=== PATIENT | female | born 1980 | race Caucasian/White ===

== ENCOUNTER 2016-08-11 20:12 | Emergency (ER) | payer OTHER ==
[2016-08-11 20:15] VITALS: RESP 16
--- NOTE | 2016-08-11 21:27 | EDPHY ---
H & P Time Seen by Provider: 08/11/16 20:38 HPI/ROS: CHIEF COMPLAINT: Right wrist injury HISTORY OF PRESENT ILLNESS: 36-year-old female presents to the emergency department with injury to her right wrist. The patient was skateboarding and fell and injured her right wrist. She did not hit her head or lose consciousness. She denies any other injury or trauma. She complains of isolated pain to the right wrist. She is right-hand dominant. She has pain especially with range of motion. The incident happened just prior to arrival. ROS: Denies numbness or tingling in her fingers, pain in her right elbow or shoulder. Past Medical/Surgical History: Negative Social History: single Smoking Status: Never smoked Physical Exam: On examination the patient has obvious swelling noted over the right wrist. She has pain with palpation especially over the distal radius. She has normal sensation to light touch with normal 2 point discrimination. Strong radial pulse at the right wrist. Unable to fully supinate secondary to pain. Limited flexion and extension secondary to pain. Her right hand is nontender. Right elbow is nontender. Constitutional: Initial Vital Signs Temperature (C) 36.4 C 08/11/16 20:13 Heart Rate 88 08/11/16 20:13 Respiratory Rate 16 08/11/16 20:13 Blood Pressure 140/98 H 08/11/16 20:13 O2 Sat (%) 93 08/11/16 20:13 O2 Delivery Mode Room Air Allergies/Adverse Reactions: No Known Allergies Allergy (Unverified 08/11/16 20:15) Home Medications: Medication Instructions Recorded NK [No Known Home Meds] 08/11/16 MDM/Departure - MDM Imaging Results: Imaging Impressions Wrist X-Ray 08/11/16 20:17 Impression: Acute impacted distal radial metadiaphyseal fracture, with an ulnar styloid avulsion fracture. Imaging: I viewed and interpreted images myself Procedures: Patient was placed in Ortho Glass sugar-tong splint and examined post application in good placement with normal [employer]. ED Course/Re-evaluation: 36-year-old female presents to the emergency department with right wrist injury. X-rays reveal distal radius intra-articular fracture as well as ulnar styloid fracture. She was placed in sugar-tong Ortho Glass splint and given orthopedic referral. The patient has insurance through [employer] and was given copies of her x-rays. - Depart Disposition: Home, Routine, Self-Care Clinical Impression: Right wrist fracture Qualifiers: Encounter type: initial encounter Fracture type: closed Qualified Code(s): S62.101A - Fracture of unspecified carpal bone, right wrist, initial encounter for closed fracture Condition: Good Instructions: Wrist Fracture in Adults (ED) Additional Instructions: Keep splint on and keep it dry. Follow up with [facility] orthopedic surgeon early next week to recheck. Ibuprofen 600 mg every 8 hours as needed for pain. Hydrocodone for severe pain only to help you sleep. Referrals: Jenniffer Sargent MD [Medical Doctor] - As per Instructions (Orthopedic surgeon on- call)
[2016-08-11] MEDS ORDERED: HYDROCOD/APAP 5/325 PREPACK#6 BTL TAKEHOME ONE (21:29)
[2016-08-11 21:53] VITALS: BP 136/78; PULSE 82; TEMP 99.7; O2SAT 96
== END 2016-08-11 21:53 | disposition home or self-care (01) ==
DX: S52.571A Other intraarticular fracture of lower end of right radius, initial encounter for closed fracture (principal); S52.611A Displaced fracture of right ulna styloid process, initial encounter for closed fracture; V00.131A Fall from skateboard, initial encounter; Y92.89 Other specified places as the place of occurrence of the external cause; Y99.8 Other external cause status; Y93.89 Activity, other specified
CPT/HCPCS: A4565